=== PATIENT | female | born 1980 | race African-American/Black ===

== ENCOUNTER 2017-04-04 23:31 | Emergency (ER) | payer BC ==
[~2017-04-04 23:31] MED LIST: DICL50TA3 PO
[2017-04-04 23:34] VITALS: BP 137/81; PULSE 98; RESP 18; TEMP 98.7; O2SAT 98
--- NOTE | 2017-04-05 02:22 | PD ---
HPI Chief Complaint: Abdominal Pain Time Seen by Provider: :17 Travel History International Travel<30 days: No Contact w/Intl Traveler<30days: No Traveled to known affect area: No History of Present Illness HPI 36-year-old female notes intermittent left lower quadrant pain over the past 2 weeks. She states over the past day it has gotten worse. She denies any other specific complaints other than feeling nauseous. Quality of pain is nagging. Severity is moderate. She denies specific modifying factors. She notes history of prior ovarian cyst that felt similar. She states she does not get menstrual cycles anymore after her ablation. PFS Past Medical History Medical History: Denies Significant Hx Diminished Hearing: No Tetanus Vaccination: > 5 Years Influenza Vaccination: Yes ?: Not LMP: ablation thermal : 10 Para: 3 Miscarriage: 6 : 1 Past Surgical History Gynecologic Surgery: Yes (thermal ablation and b/l fallopian tubes removed) Other Surgery: Yes (bartholins gland removal) Social History Alcohol Use: Yes (occasional) Tobacco Use: Yes Substance Use: No Allergies-Medications (Allergen,Severity, Reaction): Coded Allergies: Penicillin (Verified Allergy, Unknown, 04/05/17) Reported Meds & Prescriptions Reported Meds & Active Scripts Active No Active Prescriptions or Reported Medications Review of Systems Except as stated in HPI: all other systems reviewed are Neg Physical Exam Narrative GENERAL: Well-nourished, well-developed patient. Well-appearing SKIN: Warm and dry. HEAD: Normocephalic and atraumatic. EYES: No injection or drainage. ENT: No nasal drainage noted. NECK: Supple, trachea midline. CARDIOVASCULAR: Regular rate and rhythm RESPIRATORY: No increased effort. No accessory muscle use. GASTROINTESTINAL: Abdomen soft, tender left lower quadrant, nondistended. NEUROLOGICAL: Awake and alert. Motor and sensory grossly within normal limits. Normal speech. Data Data Last Documented VS Vital Signs Date Time Temp Pulse Resp B/P Pulse Ox O2 Delivery O2 Flow Rate FiO2 04/04/17 23:34 98.7 98 18 137/81 98 Room Air Orders Urinalysis - C+S If Indicated (04/05/17 02:03) Ed Urine Pregnancytest Poc (04/05/17 02:03) Us Pelvis Comp Resident Buyer/Non-Preg (04/05/17 02:17) Ketorolac Inj (Toradol Inj) (04/05/17 02:30) Labs Laboratory Tests Test 04/05/17 02:25 Urine Color YELLOW Urine Turbidity CLEAR Urine pH 6.0 Urine Specific [place] 1.024 Urine Protein NEG mg/dL Urine Glucose (UA) NEG mg/dL Urine Ketones NEG mg/dL Urine Occult Blood NEG Urine Nitrite NEG Urine Bilirubin NEG Urine Urobilinogen LESS THAN 2.0 MG/DL Urine Leukocyte Esterase NEG Urine RBC 1 /hpf Urine WBC 1 /hpf Urine Squamous Epithelial 2 /hpf Cells Urine Mucus FEW /lpf Microscopic Urinalysis Comment CULT NOT INDICATED MDM Medical Decision Making Medical Screen Exam Complete: Yes Emergency Medical Condition: Yes Medical Record Reviewed: Yes (past history confirm) Interpretation(s) Pelvic ultrasound no acute is negative Urine no signs of infection Differential Diagnosis Cyst, stone, torsion Narrative Course Will check urinalysis, test, pelvic ultrasound and reevaluate after Toradol Patient denies any new complaints and states that they are feeling better. Patient happy with care, all questions answered. Patient knows that follow up is incumbent on them and to return to the emergency room immediately if new or worsening symptoms develop. Patient given strict return precautions, vitals reviewed and are normal, agrees to further workup as an outpatient. Diagnosis Primary Impression: Abdominal pain Qualified Code: R10.32 - Left lower quadrant pain Patient Instructions: General Instructions Additional Instructions: alternate tylenol and motrin, follow with primary friday, return as needed Med/Other Pt SpecificInfo: No Change to Meds Scripts No Active Prescriptions or Reported Meds Disposition: 01 DISCHARGE HOME Condition: Stable Spring Sweeney MD Apr 05, 2017 02:22 Spring Sweeney MD Apr 05, 2017 02:22
[2017-04-05] MEDS ORDERED: KETOROLAC TROMETHAMINE 60 MG/2 ML (IM) VIAL IM ONE (02:30)
[2017-04-05 04:06] LABS: BLOOD, URINE NEG (NEG); COMMENT (UR) CULT NOT INDICATED; CULTURE IF INDICATED CULT NOT INDICATED; GLUCOSE,URINE NEG (NEG); KETONE, URINE NEG (NEG); MUCUS URINE FEW /lpf (OCC); NITRITE,URINE NEG (NEG); SQUAMOUS EPITHELIAL CELL URINE 2 /hpf (0-5); URINE COLOR YELLOW (YELLW/STRAW)
--- NOTE | 2017-04-05 04:34 | RADRPT ---
EXAM DATE/TIME: 04/05/2017 03:44 [facility] COMPARISON: No previous studies available for comparison. INDICATIONS : Pelvic pain. MEDICAL HISTORY : Hx of pregnancies. Tobacco use. Pelvic pain. Endometriosis. SURGICAL HISTORY : Thermal ablation. Bilateral fallopian tube removal. Bartholins gland removal. ENCOUNTER: Initial ACUITY: 2 weeks PAIN SCORE: 5/10 LOCATION: Bilateral pelvis MEASUREMENTS: UTERUS: 8.1 x 5.8 x 4.3 cm ENDOMETRIAL STRIPE: 3 mm RIGHT OVARY: 1.8 x 1.6 x 1.9 cm LEFT OVARY: 2.6 x 2.3 x 1.7 cm FINDINGS: UTERUS: The myometrium has homogeneous echotexture without mass. RIGHT OVARY: Ovary contains no mass or significant cystic lesion. LEFT OVARY: Ovary contains no mass or significant cystic lesion. MISCELLANEOUS: No free fluid. CONCLUSION: Unremarkable exam. Chan Mcclelland MD on April 05, 2017 at 4:31 Board Certified Radiologist. This report was verified electronically.
[2017-04-05 04:58] VITALS: BP 130/82
== END 2017-04-05 05:03 | disposition home or self-care (01) ==
LOC: NEPC 23:31
DX: R10.32 Left lower quadrant pain (principal); Z72.0 Tobacco use
CPT/HCPCS: 76856; 81001; 84703; 96372; 99284; J1885